=== PATIENT | male | born 1990 | race Caucasian/White ===

== ENCOUNTER 2020-05-15 17:54 | Emergency (ER) | payer OTHER ==
[2020-05-15 19:56] LABS: Basophils # (A) 0.1 k/uL (0-0.2); Basophils % (A) 1 %; Eosinophils # (A) 0.1 k/uL (0-0.7); Eosinophils % (A) 1 %; HGB 15.1 gm/dL (13.0-17.5); Lymphocytes # (A) 1.7 k/uL (1.0-4.8); Lymphocytes % (A) 28 %; MCH 27.7 pg (25.0-35.0); MCHC 32.1 g/dL (31.0-37.0); MCV 86.5 fL (80.0-100.0); Monocytes # (A) 0.4 k/uL (0-1.0); Monocytes % (A) 7 %; Neutrophils # (A) 3.7 k/uL (1.3-7.7); Neutrophils % (A) 61 %; Platelet Count 246 k/uL (150-450); RBC 5.44 m/uL (4.30-5.90); RDW 12.3 % (11.5-15.5)
--- NOTE | 2020-05-15 20:01 | XR ---
EXAMINATION TYPE: XR chest 2V DATE OF EXAM: 05/15/2020 COMPARISON: NONE HISTORY: Chest pain TECHNIQUE: FINDINGS: Heart and mediastinum are normal. Lungs are clear. Diaphragm is normal. Bony thorax appears normal. IMPRESSION: Normal chest
[2020-05-15 20:07] LABS: ALT 18 U/L (4-49); AST 27 U/L (17-59); African American GFR (CKD) >90 (>60 ml/min/1.73 sqM); Albumin 4.9 g/dL (3.5-5.0); Alkaline Phosphatase 56 U/L (38-126); Anion Gap 9 mmol/L; Blood Urea Nitrogen 10 mg/dL (9-20); Calcium 9.9 mg/dL (8.4-10.2); Carbon Dioxide 28 mmol/L (22-30); Chloride 102 mmol/L (98-107); Glucose 90 mg/dL (74-99); Non-African American GFR(CKD) >90 (>60 ml/min/1.73 sqM); Potassium 4.2 mmol/L (3.5-5.1); Sodium 139 mmol/L (137-145); Total Bilirubin 0.8 mg/dL (0.2-1.3); Total Protein 7.7 g/dL (6.3-8.2)
[2020-05-15 20:24] LABS: T4, Free (Free Thyroxine) 0.94 ng/dL (0.78-2.19)
[2020-05-15 20:25] LABS: D-Dimer <0.17 mg/L FEU (<0.60); INR 1.1 (<1.2); Partial Thromboplastin Time 25.3 sec (22.0-30.0); Prothrombin Time 11.4 sec (9.0-12.0)
--- NOTE | 2020-05-15 21:32 | ED ---
Chest Pain HPI - General Chief Complaint: Chest Pain Stated Complaint: chest pain Source: patient Mode of arrival: wheelchair Limitations: no limitations - History of Present Illness Initial Comments: Patient is a 29-year-old male with past medical history of sinus tachycardia who presents to the emergency room with reported chest pain. Patient states that the pain has been on and off for the past 2 days. States the pain is worse when he has an anxiety attack. Anxiety is something that he is diagnosed with however took himself off his Celexa several months ago. Patient denies a pleuritic chest pain. No associated diaphoresis or vomiting. Does feel nauseous when it comes on. States he will have several episodes per hour. Patient has had a previous cardiac workup. States 3 years ago he saw a battery tester and had a stress test as well as Holter monitoring performed. Patient reports that his symptoms have been improved over the past several years up until now. He denies any fevers or chills. No history of intravenous drug use. Denies ripping or tearing sensation to his back. No history of DVT or PE. No lower extremity pain. There are no other alleviating, precipitating or modifying factors - Related Data Home Medications Medication Instructions Recorded Confirmed No Known Home Medications 05/15/20 05/15/20 Allergies Allergy/AdvReac Type Severity Reaction Status Date / Time No Known Allergies Allergy Verified 05/15/20 21:28 Review of Systems ROS Statement: Those systems with pertinent positive or pertinent negative responses have been documented in the HPI. ROS Other: All systems not noted in ROS Statement are negative. EKG Findings - EKG Comments: EKG Findings:: EKG demonstrates a normal sinus rhythm with ventricular rate of 89. AL interval 134. QRS 82. QTC 413. No acute ST segment elevations or depressions concerning for ischemic changes. No signs of Posnk-Enqzlmefq-Tolwh or Brugada syndrome Past Medical History Additional Past Medical History / Comment(s): sinus tachycardia History of Any Multi-Drug Resistant Organisms: None Reported Past Surgical History: No Surgical Hx Reported Past Psychological History: No Psychological Hx Reported Smoking Status: Never smoker Past Alcohol Use History: Occasional Past Drug Use History: None Reported General Exam Limitations: no limitations Course Vital Signs 05/15/20 05/15/20 05/15/20 18:17 20:00 21:00 Temperature 98.4 F Pulse Rate 94 89 106 H Respiratory 16 16 16 Rate Blood Pressure 149/77 144/88 130/77 O2 Sat by Pulse 100 99 99 Oximetry Chest Pain MDM - MDM Upon the patient's placed in room 4. A thorough history and physical exam was performed. 12-lead EKG was performed. Patient to continuous pulse ox and cardiac monitoring. Patient does have an episode of tachycardia after his IV insertion. I did offer him something for anxiety however the patient refused. Laboratory studies were performed. Chest x-ray demonstrates no acute intrathoracic process. I did a bedside cardiac ultrasound which demonstrates no signs of pericardial effusion. Patient will be discharged home at this time. Follow-up with battery tester. Return to the [facility] department for any new or worsening symptoms. Patient discharged home in stable condition Hemoglobin 15.1 platelets 246. Sodium 139. Differential and 4.2. Free T4 0.94. TSH 1.2. Troponin is negative. BNP 37. PT 11.4 INR 1.1. D-dimer less than 0.17. Disposition Clinical Impression: Palpitations, Chest pain Disposition: HOME SELF-CARE Condition: Stable Instructions (If sedation given, give patient instructions): Chest Pain (ED) Additional Instructions: [facility] with the [facility]. Return to the emergency room for any new or worsening symptoms Is patient prescribed a controlled substance at d/c from ED?: No Referrals: None,Stated [Primary Care Provider] - 1-2 days [facility] [Provider Group] - 1-2 days Time of Disposition: 22:08
[2020-05-17 09:39] VITALS: BP 140/73; PULSE 78; RESP 16; TEMP 98
== END 2020-05-15 22:15 | disposition home or self-care (01) ==
LOC: EC 17:54
DX: R07.9 Chest pain, unspecified (principal); R00.2 Palpitations; R00.0 Tachycardia, unspecified; Z53.29 Procedure and treatment not carried out because of patient's decision for other reasons
CPT/HCPCS: 36415; 71046; 80053; 83880; 84439; 84443; 84484; 85025; 85379; 85610; 85730; 93005; 99285